=== PATIENT | female | born 1995 | race Caucasian/White ===

== ENCOUNTER 2016-06-15 17:12 | Emergency (ER) ==
[2016-06-15 17:58] LABS: URINE SOURCE CLEAN CATCH
[2016-06-15 18:05] LABS: BILIRUBIN URINE NEGATIVE (NEGATIVE); CLARITY SLIGHTLY CLOUDY (CLEAR); COLOR YELLOW; GLUCOSE URINE NEGATIVE (NEGATIVE)
[2016-06-15 18:06] LABS: BLOOD URINE TRACE (NEGATIVE); LEUKOCYTES URINE TRACE (NEGATIVE); NITRITE URINE NEGATIVE (NEGATIVE); PH URINE 6.5; PROTEIN URINE TRACE mg/dL (NEGATIVE); URINE MICROSCOPIC NEEDED? YES; UROBILINOGEN URINE NORMAL
[2016-06-15 18:08] LABS: URINE EPITHELIAL CELLS <10 /HPF (<10); URINE RBC <10 /HPF (<10); URINE WBC <10 /HPF (<10)
[2016-06-15] MEDS ORDERED: XYLOCAINE-MPF 1% INJ ONE (18:22)
[2016-06-15] MEDS ORDERED: ZITHROMAX PO ONE (18:22)
[2016-06-15] MEDS ORDERED: ROCEPHIN IM ONE (18:22)
[2016-06-15] MEDS ORDERED: ZITHROMAX ONE (18:24)
[2016-06-15] MEDS ORDERED: ROCEPHIN ONE (18:25)
[2016-06-15] MEDS ORDERED: XYLOCAINE-MPF 1% 5 ML ONE (18:25)
--- NOTE | 2016-06-15 18:25 | PROVIDER DOCUMENTATION ---
HPI-Female /OB/Breast - History of Present Illness-Female /OB Does patient report she is ?: No Severity in ED: reports: mild Timing: reports: still present Context/Activities at Onset: reports: none Vaginal Symptoms: reports: no symptoms Sexual intercourse history: reports: Less Than 2 Months Ago, Single Partner Contraception: reports: none Associated Symptoms: reports: denies symptoms Similar Symptoms Previously?: No Recently seen or treated by another doctor?: No <Diana Lindsay - Last Filed: 06/15/16 18:21> <Akiko Haywood - Last Filed: 06/15/16 18:47> - General Chief Complaint: General Adult Stated Complaint: STD TESTING Time Seen by Provider: 06/15/16 18:14 Allergies/Adverse Reactions: Patient Allergies Allergy/AdvReac Type Severity Reaction Status Date / Time Penicillins Allergy Severe ANAPHYLAXIS Verified 06/15/16 17:29 amoxicillin [Amoxicillin] Allergy SWELLING Verified 06/15/16 17:29 Home Medications: Home Medication List Medication Instructions Recorded Confirmed Last Taken Type Cephalexin [Keflex] 500 mg PO BID #20 capsule 06/15/16 Unknown Rx - History of Present Illness-Female /OB Nature of Presenting Problem: 20 year old F presents to the Ed with a cc of being exposed to chlamydia. Pt states that her boyfriend is checked regularly and recently tested positive for chlamydia. Pt states that last unprotected sex was last night. Pt denies any signs or symptoms. (Diana Lindsay) Review of Systems - Adult - REVIEW OF SYSTEMS - ADULT Constitutional: denies: chills, fever Eyes: reports: no symptoms reported Ears, Nose, Mouth & Throat: reports: no symptoms reported Cardiovascular: reports: no symptoms reported Respiratory: reports: no symptoms reported Gastrointestinal: denies: abdominal pain, nausea, vomiting Genitourinary: denies: dysuria, discharge, hematuria Musculoskeletal: denies: back pain, muscle weakness Integumentary: reports: no symptoms reported Neurological: reports: no symptoms reported Psychiatric: reports: no symptoms reported Endocrine: reports: no symptoms reported Hematologic/Lymphatic: reports: no symptoms reported Allergic/Immunologic: reports: no symptoms reported All Other Systems: Reviewed and Negative <Diana Lindsay - Last Filed: 06/15/16 18:21> Past History - Adult - PAST MEDICAL HISTORY-ADULT Review of Records: reports: Nursing Assessment Review, Medications Reviewed Major Childhood Illnesses: reports: denies history Cardiovascular: reports: denies history Respiratory: reports: denies history Gastrointestinal: reports: denies history Obstetrical/Gynecological: reports: denies history Genitourinary: reports: denies history Musculoskeletal: reports: denies history Neurological: reports: denies history Endocrine/Immune: reports: denies history Other Conditions: reports: denies history - PRIOR SURGERIES/PROCEDURES Surgical/Procedure History: reports: - PRIOR HOSPITALIZATIONS Prior Hospitalizations: reports: none - IMMUNIZATION STATUS Childhood Immunizations: See Nurse Assessment Flu Vaccine: See Nurse Assessment - FAMILY HISTORY Family History: reviewed, not pertinent - SOCIAL HISTORY Smoking: non-smoker Substance Use: none/never Alcohol Use Frequency: never <Diana Lindsay - Last Filed: 06/15/16 18:21> Physical Exam-General - PHYSICAL EXAM-ADULT Initial Vital Signs Reviewed: Yes - CONSTITUTIONAL General Appearance: appears well, alert, no apparent distress - RESPIRATORY Respiratory: chest non-tender, lungs clear, normal breath sounds - CARDIOVASCULAR Cardiovascular: normal peripheral pulses, regular rate, rhythm, no edema - GASTROINTESTINAL (ABDOMEN) Abdominal Exam: normal bowel sounds, non tender, soft - SKIN Integumentary: normal color, normal turgor, warm/dry - PSYCHIATRIC Psych/Mental Status: normal mood/affect, normal thought content, normal thought process, oriented x 3 <Diana Lindsay - Last Filed: 06/15/16 18:21> Progress <Diana Lindsay - Last Filed: 06/15/16 18:21> <Akiko Haywood - Last Filed: 06/15/16 18:47> - PLAN OF CARE/RESULTS Progress/Plan/Lab Results: Vital Signs Temp Pulse Resp BP Pulse Ox 06/15/16 17:27 98.1 F 87 16 114/59 98 Penicillins Allergy (Severe, Verified 06/15/16 17:29) ANAPHYLAXIS amoxicillin [Amoxicillin] Allergy (Verified 06/15/16 17:29) SWELLING Cephalexin [Keflex] 500 mg PO BID #20 capsule 06/15/16 Laboratory 06/15/16 06/15/16 18:05 17:38 Urine Source CLEAN CATCH Urine Color YELLOW Urine Clarity SLIGHTLY CLOUDY A Urine pH 6.5 Ur Specific [place] 1.020 Urine Protein TRACE A Urine Ketones NEGATIVE Urine Blood TRACE Urine Nitrite NEGATIVE Urine Bilirubin NEGATIVE Urine Urobilinogen NORMAL Urine Microscopic RBC <10 Urine WBC TRACE A Urine Microscopic WBC <10 Ur Epithelial Cells <10 Urine Bacteria 1+ Urine Glucose NEGATIVE Urine Test NEGATIVE Orders Category Date Time Status CHLAMYDIA AND GC BY PCR URINE [LAZARO] Stat Lab 06/15/16 17:30 Received TEST-URINE [PREG] Stat Lab 06/15/16 18:[address] [URINALYSIS] Stat Lab 06/15/16 17:38 Completed URINE MICROSCOPIC [URINALYSIS] Stat Lab 06/15/16 17:38 Completed Azithromycin [Zithromax] Med 06/15/16 18:24 Discontinued 1,000 mg .ROUTE .STK-MED ONE Azithromycin [Zithromax] Med 06/15/16 18:22 Discontinued 1,000 mg PO NOW ONE CefTRIAXONE [Rocephin] Med 06/15/16 18:25 Discontinued 1 gm .ROUTE .STK-MED ONE CefTRIAXONE [Rocephin] Med 06/15/16 18:22 Discontinued 1 gm IM NOW ONE Lidocaine 1% Pf [Xylocaine-Mpf 1%] Med 06/15/16 18:22 Discontinued 5 ml INJ NOW ONE Lidocaine 1% Pf [Xylocaine-Mpf 1%] 5 ml Med 06/15/16 18:25 Discontinued .ROUTE As Directed (Akiko Haywood) Departure <Diana Lindsay - Last Filed: 06/15/16 18:21> - Departure Time of Disposition Order: 18:47 Certified Medical Emergency: Emergent <Akiko Haywood - Last Filed: 06/15/16 18:47> - Departure DIAGNOSIS: STD exposure Disposition: HOME 01 Condition: Stable Additional Instructions: Follow up with Dr. Powers, advertising editor ED Follow Up Instructions: You have been treated by a care provider in the Emergency Department. These instructions are being provided to you so you can have an understanding of how to care for yourself upon discharge. Upon discharge from the Emergency Department, you are responsible for making arrangements for follow-up care by a physician of your choice. Take all prescribed medications as directed. Return to the Emergency Department immediately for any new or worsening symptoms. You may call the Physician Referral phone number at [phone] to obtain a list of Physicians who are taking new patients. Prescriptions: Cephalexin [Keflex] 500 mg PO BID #20 capsule Referrals: Rj Powers MD [STAFF PHYSICIAN] - None,PCP [Primary Care Provider] - Forms: Return to School/Parent Work Instructions: Sexually Transmitted Disease, [id number], Cephalexin tablets or capsules Attestation - Scribe Verification/Attestation Scribe:: Diana Lindsay Acting as Scribe for:: Akiko Haywood Scribe documention review:: This chart was documented by a scribe and accurately reflects the service the provider performed and the decisions made by the provider. <Diana Lindsay - Last Filed: 06/15/16 18:21> Physician Attestation - Physician Attestation I, the provider, attest to the following statement:: Akiko aHywood Physician documentation Attestation:: This documentation recorded by the scribe accurately reflects the service I personally performed and the decisions made by me. <Diana Lindsay - Last Filed: 06/15/16 18:21>
[2016-06-15 18:52] VITALS: BP 103/70
== END 2016-06-15 18:52 | disposition home or self-care (01) ==
LOC: P.ED 17:12
DX: Z20.2 Contact with and (suspected) exposure to infections with a predominantly sexual mode of transmission (principal)
CPT/HCPCS: 81001; 81025; 87491; 87591; J0696